=== PATIENT | male | born 1945 | race Caucasian/White ===

== ENCOUNTER → 2018-03-24 08:33 | Outpatient (CLI) | payer MEDICARE, SELFPAY ==
[2018-03-24 09:24] LABS: Add Manual Diff / Slide Review NO; Eosinophils Percent Auto 5.8 % (2-4); Hematocrit 38.4 % (41-53); Hemoglobin 13.4 g/dL (13.5-17.5); Lymphocytes Percent Auto 19.6 % (25-40); Mean Corpuscular HGB Conc 34.9 % (30-36); Mean Corpuscular Hemoglobin 30.1 PG (26-34); Mean Corpuscular Volume 86.4 fL (80-100); Monocytes Percent Auto 8.5 % (3-14); Neutrophils Absolute Auto 3200 /uL (3000-5900); Neutrophils Percent Auto 65.1 % (50-75); Platelet Count 200 X10^3/uL (150-400); Red Blood Cell Count 4.45 X10^6/uL (4.5-5.9); Red Cell Distribution Width 13.5 % (11.6-14.8); White Blood Cell Count 4.9 X10^3/uL (4.5-11.0)
[2018-03-24 10:26] LABS: Alanine Aminotransferase 28 IU/L (21-72); Albumin 4.6 g/dL (3.5-5.0); Albumin Globulin Ratio 1.8 (1.0-2.8); Alkaline Phosphatase 53 U/L (38-126); Aspartate Aminotransferase 21 IU/L (17-59); Bilirubin Total 1.4 mg/dL (0.2-1.3); Blood Urea Nitrogen 18 mg/dL (9-20); Calcium 9.8 mg/dL (8.4-10.2); Carbon Dioxide 27 mmol/L (22-32); Chloride 106 mmol/L (98-107); Cholesterol 188 mg/dL (140-199); Estimated Glomerular Filt Rate > 60.0 mL/min (>60); Globulin 2.6 g/dL (1.7-4.1); Glucose 98 mg/dL (80-110); HDL Cholesterol 54 mg/dL (40-60); HEMOLYSIS < 15 (0-50); LDL Cholesterol Calculated 96 mg/dL (<100); Sodium 146 mmol/L (137-145); Total Protein 7.2 g/dL (6.3-8.2); Triglycerides 190 mg/dL (35-150)
[2018-03-24 10:59] LABS: Prostate Specific Antigen Scrn < 0.064 ng/mL (0.1-4.0)
[2018-03-24 11:00] LABS: TSH w/ Reflex to FT4 1.75 uIU/mL (0.47-4.68)
== END ==
PROVIDERS: PCP Family Medicine; Visit Provider Family Medicine
DX: E78.5 Hyperlipidemia, unspecified (principal); I10 Essential (primary) hypertension; R73.03 Prediabetes; Z85.46 Personal history of malignant neoplasm of prostate
CPT/HCPCS: 36415; 80053; 80061; 84443; 85025; G0103

== ENCOUNTER → 2018-04-24 09:12 | Outpatient (CLI) | payer MEDICARE, SELFPAY ==
--- NOTE | 2018-04-24 09:14 | DI.MRI.S_ITS ---
PROCEDURE: MR LUMBAR SPINE WO CON INDICATIONS: SCIATICA TECHNIQUE: Noncontrast sagittal T1 spin echo and T2 fast echo, sagittal STIR, axial T1 and T2 fast spin echo through the lumbar spine. In cases with scoliosis, additional coronal T2 fast spin echo may be performed. COMPARISON: None. FINDINGS: Image quality: Excellent. Alignment and Curvature: There is normal bony alignment. Bone Marrow: Marrow is of normal overall signal. No acute vertebral body compression fractures. Spinal Cord: Conus medullaris terminates at the L1 level. Visualized cord demonstrates normal signal and size. Paraspinous Soft Tissues: No paravertebral masses. There is partial visualization of the abdominal aortic aneurysm that measures up to 4.7 cm. T12-L1: The disc height and disc signal are relatively well-preserved. Mild generalized disc bulge is seen. No significant neural foraminal or central canal narrowing are seen. L1-L2: The disc height and disk signal are well-preserved. Mild generalized disc bulge is seen. There is moderate left-sided and no significant right-sided neural foraminal narrowing seen. Mild central canal narrowing is seen. L2-L3: No significant abnormality is seen. L3-L4: The disc height is well preserved. Mild loss of disc signal is seen. Mild to moderate disc bulge is seen, which is eccentric to the right. Moderate facet joint hypertrophy is seen. Moderate bilateral neural foraminal narrowing is seen. Moderate central canal narrowing is seen. L4-L5: The disc height is well-preserved. Loss of disc signal is seen at this level. Along the posterior aspect of the annulus fibrosis, there is an annular fissure seen, as on series 2 image 9. Moderate generalized disc bulge is seen. Mild facet joint hypertrophy is seen. [id number] bilateral neural foraminal narrowing is seen, left greater than right. Mild central canal narrowing is seen. L5-S1: No significant disc pathology is seen. Relatively prominent epidural fat can be seen at this level, which leads to at least moderate central canal narrowing. IMPRESSION: Multiple levels of lumbar spine degenerative change are seen, including moderate bilateral neural foraminal narrowing and moderate central canal narrowing at L3-L4. At L4-L5, there is an annular fissure seen posteriorly. An abdominal aortic aneurysm is partially seen, which measures at least 4.7 cm. Further dedicated evaluation is recommended, either with ultrasound or dedicated CT angiogram. Dictated by: Iraj Cheek M.D. on 04/24/2018 at 10:44 Approved by: Iraj Cheek M.D. on 04/24/2018 at 10:50
== END ==
PROVIDERS: PCP Family Medicine; Visit Provider Family Medicine
DX: M51.16 Intervertebral disc disorders with radiculopathy, lumbar region (principal); M48.061 Spinal stenosis, lumbar region without neurogenic claudication; I71.4 Abdominal aortic aneurysm, without rupture
CPT/HCPCS: 72148

== ENCOUNTER → 2018-05-15 08:46 | Outpatient (CLI) | payer MEDICARE, SELFPAY ==
--- NOTE | 2018-05-15 08:49 | DI.US.S_ITS ---
PROCEDURE: US ABD AORTA ANEURYSM SCREEN INDICATIONS: Abdominal aortic aneurysm size TECHNIQUE: Real time scanning was performed of the aorta and iliac arteries, with image documentation. COMPARISON: None. FINDINGS: Aorta: Proximal aortic diameter measures 1.8 cm. Mid-aorta measures 1.4 cm. Distal aortic diameter is 3.9 cm. Iliac arteries: Right common iliac artery measures 1.4 cm. Left common iliac artery measures 1.1 cm. IMPRESSION: 3.9 cm distal abdominal aortic aneurysm. Recommend 3 year followup ultrasound. Dictated by: Bhavin Carnes [facility] Interpreted: Jasmeet Evans MD on 05/15/2018 at 9:22 Approved by: Jasmeet Evans M.D. on 05/15/2018 at 9:30
== END ==
PROVIDERS: PCP Family Medicine; Visit Provider Family Medicine
DX: I71.4 Abdominal aortic aneurysm, without rupture (principal)
CPT/HCPCS: 76706

== ENCOUNTER → 2019-01-04 08:44 | Outpatient (CLI) | payer MEDICARE, SELFPAY ==
--- NOTE | 2019-01-04 09:10 | DI.CT.S_ITS ---
PROCEDURE: CT ABDOMEN PELVIS W CON INDICATIONS: left lower quad abdominal pain TECHNIQUE: After the administration of oral and intravenous contrast, 5 mm thick sections acquired from the diaphragms to the symphysis. 5 mm thick coronal and sagittal reformats were performed. For radiation dose reduction, the following was used: automated exposure control, adjustment of mA and/or kV according to patient size. COMPARISON: [facility], US, US ABD AORTA ANEURYSM SCREEN, 05/15/2018, 9:04. [facility], MR, MR LUMBAR SPINE WO CON, 04/24/2018, 9:30. FINDINGS: Image quality: Excellent. ABDOMEN: Lung bases: Lung bases are clear. Heart size is normal. A small hiatal hernia is incidentally noted. Solid organs: Liver is normal in size and enhancement. Gallbladder wall is not thickened. Biliary system is non-dilated. Pancreas enhances normally. Dense calcifications can be seen within the pancreas, particularly the pancreatic head Spleen is normal in size and enhancement. Incidental note is made of an accessory spleen along the hilum of the primary spleen. No adrenal nodules. Kidneys are normal in size and enhancement, without hydronephrosis. Peritoneum and bowel: Moderate wall thickening can be seen involving the sigmoid colon, where there are numerous diverticula seen. Surrounding fat stranding can be seen. No free air is seen to suggest perforation. No focal abscess collection can be seen. No dilated loops of small bowel are seen. No additional colonic abnormality is seen. Nodes and vessels: No retroperitoneal or mesenteric adenopathy. A saccular aneurysm of the distal aorta is seen on the left, which measures 4 cm transversely by 4.5 cm AP, with a craniocaudal extent of 4.9 cm. The IVC demonstrates normal caliber. Miscellaneous: No ventral hernias. PELVIS: Genitourinary: Bladder wall thickness is normal. Prostatectomy changes are seen. Miscellaneous: No inguinal hernias or adenopathy. Bones: No suspicious bony lesions. No vertebral body compression fractures. Age-appropriate bony degenerative changes are seen. IMPRESSION: Moderate sigmoid diverticulitis, without taylor findings of perforation or abscess. When clinically appropriate (following adequate treatment of the patient's current clinical episode) a colonoscopy is recommended for further evaluation for a potential underlying mass (if not already recently done). Distal abnormal aortic saccular aneurysm seen. A vascular surgery consultation is recommended. Dense pancreatic calcifications are seen, which are attributed to chronic pancreatitis. Incidental note is made of: Small hiatal hernia Prostatectomy Dictated by: Iraj Cheek M.D. on 01/04/2019 at 9:40 Approved by: Iraj Cheek M.D. on 01/04/2019 at 9:45
[2019-01-04 09:37] LABS: Add Manual Diff / Slide Review NO; Basophils Absolute Auto 0 /uL (0-100); Basophils Percent Auto 0.3 % (0-2); Eosinophils Absolute Auto 200 /uL (0-450); Eosinophils Percent Auto 1.7 % (2-4); Hematocrit 37.8 % (41-53); Hemoglobin 12.8 g/dL (13.5-17.5); Lymphocytes Absolute Auto 1000 /uL (1100-4500); Lymphocytes Percent Auto 9.1 % (25-40); Mean Corpuscular Hemoglobin 29.3 PG (26-34); Mean Corpuscular Volume 86.2 fL (80-100); Monocytes Absolute Auto 1200 /uL (0-900); Monocytes Percent Auto 10.5 % (3-14); Neutrophils Absolute Auto 8900 /uL (1500-7000); Neutrophils Percent Auto 78.4 % (50-75); Platelet Count 234 X10^3/uL (150-400); Red Blood Cell Count 4.38 X10^6/uL (4.5-5.9); Red Cell Distribution Width 13.6 % (11.6-14.8); White Blood Cell Count 11.4 X10^3/uL (4.5-11.0)
[2019-01-04 09:54] LABS: Alanine Aminotransferase 28 IU/L (21-72); Albumin 4.4 g/dL (3.5-5.0); Albumin Globulin Ratio 1.5 (1.0-2.8); Alkaline Phosphatase 65 U/L (38-126); Aspartate Aminotransferase 24 IU/L (17-59); BUN Creatinine Ratio 16.7 (6-22); Bilirubin Total 1.5 mg/dL (0.2-1.3); Blood Urea Nitrogen 15 mg/dL (9-20); Calcium 9.5 mg/dL (8.4-10.2); Carbon Dioxide 30 mmol/L (22-32); Chloride 105 mmol/L (98-107); Estimated Glomerular Filt Rate > 60.0 mL/min (>60); Globulin 2.9 g/dL (1.7-4.1); Glucose 111 mg/dL (80-110); HEMOLYSIS < 15 (0-50); Lipase 81 U/L (23-300); Potassium 3.9 mmol/L (3.4-5.1); Sodium 142 mmol/L (137-145); Total Protein 7.3 g/dL (6.3-8.2)
== END ==
PROVIDERS: PCP Family Medicine; Visit Provider Physician Assistant
DX: R10.32 Left lower quadrant pain (principal)
CPT/HCPCS: 36415; 74177; 80053; 83690; 85025; Q9967

== ENCOUNTER → 2019-01-25 08:51 | Outpatient (CLI) | payer MEDICARE, SELFPAY ==
[2019-01-25 09:45] LABS: Alanine Aminotransferase 23 IU/L (21-72); Aspartate Aminotransferase 27 IU/L (17-59); BUN Creatinine Ratio 18.9 (6-22); Blood Urea Nitrogen 17 mg/dL (9-20); Calcium 9.7 mg/dL (8.4-10.2); Carbon Dioxide 29 mmol/L (22-32); Chloride 105 mmol/L (98-107); Cholesterol 174 mg/dL (140-199); Estimated Glomerular Filt Rate > 60.0 mL/min (>60); Glucose 102 mg/dL (80-110); HDL Cholesterol 43 mg/dL (40-60); HEMOLYSIS < 15 (0-50); LDL Cholesterol Calculated 84 mg/dL (<100); Potassium 4.8 mmol/L (3.4-5.1); Sodium 142 mmol/L (137-145); Triglycerides 235 mg/dL (35-150)
== END ==
PROVIDERS: PCP Family Medicine; Visit Provider Internal Medicine
DX: I10 Essential (primary) hypertension (principal); E78.1 Pure hyperglyceridemia
CPT/HCPCS: 36415; 80048; 80061; 84450; 84460

== ENCOUNTER → 2019-04-09 09:29 | Outpatient (CLI) | payer MEDICARE, SELFPAY | PROVIDERS: PCP Family Medicine; Visit Provider Physician Assistant | DX: L08.9 Local infection of the skin and subcutaneous tissue, unspecified (principal) | CPT/HCPCS: 87070; 87077; 87147; 87186; 87205 ==

== ENCOUNTER 2019-06-20 08:02 | Day surgery (SDC) | payer MEDICARE, SELFPAY ==
--- NOTE | 2019-06-20 | PATH_ITS ---
[facility] Accession Number: [id number] . 01 Material submitted: . PART A: colon - ASCENDING COLON POLYP PART B: sigmoid colon - SIGMOID POLYP . 02 Diagnosis: A. Ascending Colon, Polyp: Colonic mucosa with prominent benign lymphoid aggregate and focal mucosal hyperplasia. Negative for dysplasia or malignancy. . B. Sigmoid Colon, Polyp: Predominantly vegetable material. Single strip of superficial colonic mucosa with no diagnostic abnormality. No evidence of serrated lesion, dysplasia or malignancy. Additional step sections examined. V 06/22/2019 1309 Local . 02 Comment: Part A: Features diagnostic of a sessile serrated adenoma are not seen in this biopsy. . 02 Electronically signed: . Abdullahi Juares MD, PhD, Pathologist NPI- [id number] . 01 Gross description: . Part A: ASCENDING COLON POLYP: Received in formalin are 2 fragment(s) of durbin, soft tissue measuring 0.2 x 0.2 x 0.1 cm to 0.3 x 0.1 x 0.1 cm submitted entirely in 1 cassette(s) Part B: SIGMOID POLYP: Received in formalin are multiple fragment(s) of durbin, soft tissue measuring 0.1 x 0.1 x 0.1 cm to 0.2 x 0.2 x 0.2 cm submitted entirely in 1 cassette(s) /[facility] [place] 06/20/20192028 Local . 02 Pathologist provided ICD-10: K63.5 . 02 CPT . 860346, [id number] Performed at: 01 [facility] [address], [place], [place] [id number] MD Quinn Kwong MD Phone: [phone] Performed at: 02 [facility] [place] [address] [place] [id number] MD Altagracia King MD Phone: [phone]
--- NOTE | 2019-06-20 08:10 | PM.HP.1 ---
History of Present Illness History of Present Illness Date Patient Seen: 06/20/19 Chief complaint: [id number] Narrative: Patient presented for screening colonoscopy. Patient describes previous colonoscopy 10-15 years ago, states he did have polyps at that time. Unfortunately do have this report available for review. Denies diarrhea constipation. Patient History Medical History AAA (abdominal aortic aneurysm) without rupture (Chronic) Anxiety (Chronic) CAD (coronary artery disease) (Chronic 10/2013) Chicken pox (Resolved) Chronic headaches (Chronic) Cirrhosis (Chronic) Colon polyps (Chronic) CTS (carpal tunnel syndrome) (Chronic) CVA (cerebral vascular accident) (Resolved) Diverticular disease (Chronic) Elevated PSA (Resolved) Erectile dysfunction following radical prostatectomy (Chronic) Foot pain (Chronic) Fractures (Resolved) GERD (gastroesophageal reflux disease) (Chronic) Hayfever (Chronic) Hyperlipidemia (Chronic) Hypertension (Chronic) Insomnia (Chronic) Measles (Resolved) WI (myocardial infarction) (Resolved) Migraines (Chronic) Mumps (Resolved) Myalgia (Chronic) Osteopenia (Chronic) Palpitations (Chronic) Prostate cancer (Chronic) Psoriasis (Chronic) PTSD (post-traumatic stress disorder) (Chronic) Shoulder pain (Chronic) SOB (shortness of breath) (Chronic) Tinnitus (Chronic) Vertigo (Chronic) Surgical History Anesthesia (Resolved) History of angioplasty (Resolved 10/2013) Status post knee surgery (Resolved) Status post radical cystoprostatectomy (Resolved) Family & Social History Family History (Updated 03/21/18 @ 09:31 by Karon Dinh) Brother Age: 76 Heart disease Grandfather Colorectal cancer Grandmother Hypertension Cancer Mother Heart disease Hypertension Sister Age: 77 Breast cancer Father Alcohol abuse Grandmother No problems noted. Grandfather No problems noted. Tobacco & Substance use: Smoking Status Former smoker Meds Home Medications and Allergies Home Medications Medication Instructions Recorded Confirmed Type aspirin 81 mg PO QDAY #30 tab 02/27/16 06/20/19 History carvedilol 3.125 mg tablet 3.125 mg PO BID 07/26/18 06/20/19 History clopidogrel 75 mg tablet 75 mg PO DAILY 07/26/18 06/20/19 History losartan 25 mg tablet See Rx Instructions PO BID tab 07/26/18 06/20/19 History rosuvastatin 20 mg tablet 20 mg PO DAILY 07/26/18 06/20/19 History escitalopram oxalate [Lexapro] 10 mg PO QDAY #90 tab 08/25/18 06/20/19 Rx Allergies Allergy/AdvReac Type Severity Reaction Status Date / Time isosorbide [ISOSORBIDE] Allergy Severe HEADACHE/NA Verified 06/20/19 08:29 USEA Review of Systems Review of Systems ROS Unobtainable: All systems reviewed & are unremarkable except as noted in HPI and below Exam Const General: cooperative, healthy appearing, comfortable, well developed, well groomed and No acute distress Nutritional Appearance: average body habitus Orientation: alert, awake and oriented x3 Resp Effort & Inspection: normal respiratory effort, able to speak in complete sentences and no respiratory distress Auscultation: clear to auscultation bilaterally Cardio Rate: regular rate Rhythm: regular rhythm Heart Sounds: S1 normal and S2 normal GI Palpation: soft and No tender Auscultation: normal bowel sounds Extrem Right lower extremity: no edema Left lower extremity: no edema Assessment & Plan Assessment & Plan narrative: 1. Screening colonoscopy, increased risk -personal history of colon polyps - Colonoscopy today, further recommendations to follow
[2019-06-20 08:35] VITALS: BP 149/79; PULSE 70; RESP 15; TEMP 36.3; O2SAT 99; BMI 26.4
[2019-06-20] MEDS: SODIUM CHLORIDE 0.9% 1,000 ML 70 ML IV (08:44)
--- NOTE | 2019-06-20 10:04 | PM.OP.ENDO ---
Operative Date/Time/Diagnoses Date of procedure: 06/20/19 Time of procedure: 09:41 Procedure Notes Procedure in detail: Surgeon: Lizette Butler DO Procedure: Colonoscopy with polypectomy Preoperative diagnosis: 1. Personal history colon polyps 2. History of diverticulitis Postoperative diagnosis: 1. Five mm ascending colon polyp 2. Four mm sigmoid colon polyp 3. Diverticulosis in the sigmoid and descending 4. Internal and external hemorrhoids Medications: Conscious sedation using 5 mg IV of Midazolam and 100 mcg IV of Fentanyl Preanesthesia Assessment An H and P was performed/updated and the Px?s ASA class is 2. The procedure was discussed in detail with the patient. The potential risks and complications including infection, bleeding, missed lesions, perforation, need for surgery in case of perforation, prolonged hospital stay, and were explained. A brief question and answer period was allotted and once all questions were answered, informed consent was obtained. The patient was brought back to the procedure room and placed on standard monitoring. The patient?s vital signs were monitored continuously throughout the entire procedure. Prior to starting, a timeout was performed to confirm the patient?s identity, allergies, medications, and procedure. Procedure in detail The patient was placed in left lateral decubitus position and once adequate sedation was obtained a BLUE was performed. The digital rectal examination did not reveal any palpable lesions. The tip of the colonoscope was placed in the anal canal and advanced without difficulty all the way to the cecum which was identified by the appendiceal orifice and the ileocecal valve. Careful examination of all orozco of the colon was performed with irrigation of any residual stool. A flat polyp was noted in the ascending colon 5 mm in size removed with cold snare. Sigmoid polyp 4 mm removed with cold snare. Scattered diverticula noted in the sigmoid and descending colon. Internal and external hemorrhoids noted on perianal exam and on retroflexion, grade 1, mild The patient tolerated the procedure well and will be brought back to the recovery area to be discharged once criteria are met. The prep was judged to be good/excellent and adequate to identify polyps less than 5 mm. The withdrawal time was 9min. The total physician intraservice time was 22min. Complications There were no complications and estimated blood loss was minimal. Recommendations: Resume previous diet Continue outPx medications Follow up pathology results Repeat colonoscopy in 5 years. An emergency contact number was given to the patient for any complications related to the procedure
[2019-06-20 10:10] VITALS: BP 108/62; PULSE 60; RESP 14; TEMP 36.4; O2SAT 94
[2019-06-20] MEDS: MIDAZOLAM 5 MG/5 ML VIAL IV (10:13)
[2019-06-20] MEDS: fentaNYL 250 MCG/5 ML INJ IV (10:14)
[2019-06-20 10:15] VITALS: BP 114/66; PULSE 60; RESP 15; O2SAT 94
[2019-06-20 10:20] VITALS: BP 116/66; PULSE 65; RESP 13; O2SAT 64
[2019-06-20 10:30] VITALS: BP 138/62; PULSE 70; RESP 16; TEMP 36.8; O2SAT 96
[2019-06-20 10:35] VITALS: BP 139/82; PULSE 64; RESP 15; TEMP 36.9; O2SAT 97
== END 2019-06-20 11:02 | disposition home or self-care (01) ==
PROVIDERS: PCP Internal Medicine; Visit Provider Student in an Organized Health Care Education/Training Program
PROC: 0DJD8ZZ Inspection of Lower Intestinal Tract, Via Natural or Artificial Opening Endoscopic (ICD-10-PCS; CPT 45378; principal; 2019-06-20 09:00)
DX: Z12.11 Encounter for screening for malignant neoplasm of colon (principal); Z86.010 Personal history of colon polyps; K57.30 Diverticulosis of large intestine without perforation or abscess without bleeding; K64.0 First degree hemorrhoids; K64.4 Residual hemorrhoidal skin tags; K63.5 Polyp of colon
CPT/HCPCS: 45385; J2250; J3010

== ENCOUNTER → 2019-06-25 12:14 | Outpatient (CLI) | payer MEDICARE, SELFPAY ==
--- NOTE | 2019-06-25 | DI.RAD.S_ITS ---
PROCEDURE: XR LUMBAR SPINE 2-3V INDICATIONS: low back and left leg pain TECHNIQUE: 3 views of the lumbar spine were acquired. COMPARISON: None. FINDINGS: Bones: No fracture or focal osseous destruction. Straightening of the normal lordotic curvature. Mild dextrocurvature. Multilevel degenerative endplate sclerosis and spurring. Diffuse facet arthropathy. Diffuse mild narrowing of the lumbar disc spaces. Mild bilateral hip joint degeneration. Soft tissues: Overlying bowel gas pattern is normal. No suspicious soft tissue calcifications. IMPRESSION: Mild dextroscoliosis and diffuse mild lumbar spondylosis. Multilevel facet arthropathy Mild bilateral hip degeneration Straightening of the normal lordotic curvature. Dictated by: Noel Aguila M.D. on 06/25/2019 at 15:00 Approved by: Noel Aguila M.D. on 06/25/2019 at 15:03
== END ==
PROVIDERS: PCP Internal Medicine; Visit Provider Chiropractor
DX: M54.5 Low back pain (principal); M79.605 Pain in left leg; M47.816 Spondylosis without myelopathy or radiculopathy, lumbar region; M16.0 Bilateral primary osteoarthritis of hip; M41.86 Other forms of scoliosis, lumbar region
CPT/HCPCS: 72100

== ENCOUNTER → 2019-07-04 06:31 | Outpatient (CLI) | payer MEDICARE, SELFPAY ==
--- NOTE | 2019-07-04 | DI.MRI.S_ITS ---
PROCEDURE: MR LUMBAR SPINE WO CON INDICATIONS: Lumbago with sciatica, left side TECHNIQUE: Noncontrast sagittal T1 spin echo and T2 fast echo, sagittal STIR, axial T1 and T2 fast spin echo through the lumbar spine. In cases with scoliosis, additional coronal T2 fast spin echo may be performed. COMPARISON: [facility], CT, CT ABDOMEN PELVIS W CON, 01/04/2019, 10:15. [facility], MR, MR LUMBAR SPINE WO CON, 04/24/2018, 9:30. FINDINGS: Image quality: Excellent. Alignment and Curvature: There is normal bony alignment. Bone Marrow: No fracture. Multilevel degenerative endplate sclerosis and spurring. Diffuse facet arthropathy. Spinal Cord: Conus medullaris terminates at the L1 level. Visualized cord demonstrates normal signal and size. Paraspinous Soft Tissues: Large saccular aortic aneurysm is again partially visualized, better seen on comparison CT dated 01/04/19 L1-L2: Normal appearance. L2-L3: Normal appearance. L3-L4: Moderate central canal narrowing. Partial effacement of both lateral recesses with bilaterally symmetric appearance. Mild left foraminal stenosis with slight nerve root compression. Moderate right foraminal stenosis with associated nerve root compression. Overall, no interval change since 04/24/18 L4-L5: Posterior annular fissure and mild central canal narrowing. Partial effacement of both lateral recesses with bilaterally symmetric appearance. Mild bilateral foraminal narrowing with slight nerve root compression. No interval change L5-S1: Prominent epidural lipomatosis as before with associated severe canal narrowing. Lateral recesses appear patent. Mild bilateral foraminal narrowing IMPRESSION: Multilevel lumbar spondylosis as detailed above, with prominent epidural lipomatosis causing severe canal narrowing at L5-S1. This is unchanged No interval change in multilevel, bilateral foraminal stenoses as detailed above Large partially visualized saccular aortic aneurysm, better seen on comparison CT dated 01/04/19. Dictated by: Noel Aguila M.D. on 07/04/2019 at 8:45 Approved by: Noel Aguila M.D. on 07/04/2019 at 8:53
== END ==
PROVIDERS: PCP Internal Medicine; Visit Provider Internal Medicine
DX: M54.42 Lumbago with sciatica, left side (principal); M47.816 Spondylosis without myelopathy or radiculopathy, lumbar region; M48.061 Spinal stenosis, lumbar region without neurogenic claudication; M48.07 Spinal stenosis, lumbosacral region; I71.9 Aortic aneurysm of unspecified site, without rupture; E88.2 Lipomatosis, not elsewhere classified
CPT/HCPCS: 72148

== ENCOUNTER 2019-07-09 08:44 | Emergency (ER) | payer MEDICARE, SELFPAY ==
[2019-07-09 08:51] VITALS: BP 195/106; PULSE 98; RESP 16; TEMP 36.4; O2SAT 99; BMI 29.0
--- NOTE | 2019-07-09 08:52 | ED_ITS ---
HPI - Back Pain/Injury General Chief Complaint: Back Pain/Injury Stated Complaint: sciatic pain Time Seen by Provider: 07/09/19 08:48 Source: patient Mode of arrival: Ambulatory Limitations: no limitations History of Present Illness HPI Narrative: Patient is a 73-year-old male who presents with left-sided sciatic pain and back pain ongoing for the last 6 weeks. He actually had an MRI 07/04/2019 revealed multilevel lumbar spondylosis with epidural lipomatosis and severe canal narrowing at L5-S1 which is unchanged. Patient states that he has hydrocodone an anti-inflammatory and a muscle relaxer at home. He has been referred to neuro surgery and telling him and physical therapy which is to start July 19. He is frustrated that it is taking so long he has not yet taken anything for pain today and says his pain is worse. He denies any changes in bowel or bladder habits. He continues to have some numbness tingling in his left leg but not any worse than what it has been. He said last night he was un able to sleep due to the pain and he took hydrocodone and a muscle relaxer. He can't remember all the names of his medications but he says that he was recently put on a steroid which she finished is says it didn't help. He has been followed by his PCP for this problem for a number of weeks. Complaint: back pain Onset (ago): week(s) (6) Duration: constant Location: lumbar spine Severity: moderate Quality: burning and sharp Radiation: none Related Data Home Medications Medication Instructions Recorded Confirmed aspirin 81 mg PO QDAY #30 tab 02/27/16 06/20/19 carvedilol 3.125 mg tablet 3.125 mg PO BID 07/26/18 06/20/19 clopidogrel 75 mg tablet 75 mg PO DAILY 07/26/18 06/20/19 losartan 25 mg tablet See Rx Instructions PO BID tab 07/26/18 06/20/19 rosuvastatin 20 mg tablet 20 mg PO DAILY 07/26/18 06/20/19 Previous Rx's Medication Instructions Recorded escitalopram oxalate [Lexapro] 10 mg PO QDAY #90 tab 08/25/18 lidocaine 1 patch TOP DAILY PRN #15 each 07/09/19 Allergies Allergy/AdvReac Type Severity Reaction Status Date / Time isosorbide [ISOSORBIDE] Allergy Severe HEADACHE/NA Verified 07/09/19 08:51 USEA Review of Systems Review of Systems Narrative: GENERAL: Denies chills, fatigue, malaise, fever, sweats, travel HEENT: Denies sinus pain, ear pain, sore throat, difficulty swallowing, neck pain RESPIRATORY: Denies dyspnea, cough, wheezing, hemoptysis, sputum. CARDIOVASCULAR: Denies chest pain, palpitations, orthopnea, edema GASTROINTESTINAL: Denies nausea, vomiting, abdominal pain, diarrhea, constipation, melena. : Denies dysuria, frequency, incontinence, hematuria, urinary retention, flank pain. MUSCULOSKELETAL: See HPI SKIN: No rash, no erythema, no pruritus NEUROLOGIC: Denies weakness, dizziness, headache, numbness, change in speech, confusion PSYCHIATRIC: No concerning psychosocial issues. 12 point review of systems is negative except for those stated above and HPI Patient History Medical History AAA (abdominal aortic aneurysm) without rupture (Chronic) Anxiety (Chronic) CAD (coronary artery disease) (Chronic 10/2013) Chicken pox (Resolved) Chronic headaches (Chronic) Cirrhosis (Chronic) Colon polyps (Chronic) CTS (carpal tunnel syndrome) (Chronic) CVA (cerebral vascular accident) (Resolved) Diverticular disease (Chronic) Elevated PSA (Resolved) Erectile dysfunction following radical prostatectomy (Chronic) Foot pain (Chronic) Fractures (Resolved) GERD (gastroesophageal reflux disease) (Chronic) Hayfever (Chronic) Hyperlipidemia (Chronic) Hypertension (Chronic) Insomnia (Chronic) Measles (Resolved) PA (myocardial infarction) (Resolved) Migraines (Chronic) Mumps (Resolved) Myalgia (Chronic) Osteopenia (Chronic) Palpitations (Chronic) Prostate cancer (Chronic) Psoriasis (Chronic) PTSD (post-traumatic stress disorder) (Chronic) Shoulder pain (Chronic) SOB (shortness of breath) (Chronic) Tinnitus (Chronic) Vertigo (Chronic) Surgical History Anesthesia (Resolved) History of angioplasty (Resolved 10/2013) Status post knee surgery (Resolved) Status post radical cystoprostatectomy (Resolved) Family History Brother Age: 76 Heart disease Grandfather Colorectal cancer Grandmother Hypertension Cancer Mother Heart disease Hypertension Sister Age: 77 Breast cancer Father Alcohol abuse Grandmother No problems noted. Grandfather No problems noted. Social History household members: spouse Smoking Status: Former smoker Smoking Status: Former smoker Exam Initial Vital Signs Initial Vital Signs: Vital Signs Temperature 97.5 F L 07/09/19 08:51 Pulse Rate 98 H 07/09/19 08:51 Respiratory Rate 16 07/09/19 08:51 Blood Pressure 195/106 H 07/09/19 08:51 Pulse Oximetry 99 07/09/19 08:51 GENERAL: Alert older male sitting on edge of bed no acute distress HEENT: Head atraumatic,EOMI, pupils reactive CARDIOVASCULAR: Regular rate and rhythm without murmurs, rubs or gallops. RESPIRATORY: Breath sounds equal bilaterally, no wheezes rales or rhonchi. ABDOMEN: Soft, nontender. Normoactive bowel sounds all 4 quadrants. No guarding or rebound. BACK: The tender left lower lumbar area and gluteal region no vertebral tenderness no step-off EXTREMITIES: Normal range of motion, no clubbing or edema. Neurovascularly intact NEUROLOGICAL: Alert and oriented x4.Normal gait and speech. Sensation in lower extremities intact and equal bilaterally. Able to stand upright and walk he states only for short time and then he needs his walking stick because his back starts she SKIN: Warm, dry, no laceration, no petechiae, no rashes or lesions. Course Orders Ordered: Discontinued Medications Diazepam (Valium) 5 mg PO NOW ONE Stop: 07/09/19 09:06 Last Admin: 07/09/19 09:17 Dose: 5 mg Documented by: DARRIN Ketorolac Tromethamine (Toradol) 30 mg IM NOW ONE Stop: 07/09/19 09:06 Last Admin: 07/09/19 09:17 Dose: 30 mg Documented by: DARRIN Vital Signs Vital signs: Vital Signs - 8 hr 07/09/19 08:51 07/09/19 09:35 Temperature 97.5 F L Pulse Rate 98 H 78 Respiratory Rate 16 18 Blood Pressure 195/106 H Blood Pressure [Right Arm] 160/96 H Pulse Oximetry 99 99 MDM - Back Pain/Injury Imaging Data MRI-lumbar 07/04/19: Radiologist's Impression: PROCEDURE: MR LUMBAR SPINE WO CON INDICATIONS: Lumbago with sciatica, left side TECHNIQUE: Noncontrast sagittal T1 spin echo and T2 fast echo, sagittal STIR, axial T1 and T2 fast spin echo through the lumbar spine. In cases with scoliosis, additional coronal T2 fast spin echo may be performed. COMPARISON: [facility], CT, CT ABDOMEN PELVIS W CON, 01/04/2019, 10:15. [facility], MR, MR LUMBAR SPINE WO CON, 04/24/2018, 9:30. FINDINGS: Image quality: Excellent. Alignment and Curvature: There is normal bony alignment. Bone Marrow: No fracture. Multilevel degenerative endplate sclerosis and spurring. Diffuse facet arthropathy. Spinal Cord: Conus medullaris terminates at the L1 level. Visualized cord demonstrates normal signal and size. Paraspinous Soft Tissues: Large saccular aortic aneurysm is again partially visualized, better seen on comparison CT dated 01/04/19 L1-L2: Normal appearance. L2-L3: Normal appearance. L3-L4: Moderate central canal narrowing. Partial effacement of both lateral recesses with bilaterally symmetric appearance. Mild left foraminal stenosis with slight nerve root compression. Moderate right foraminal stenosis with associated nerve root compression. Overall, no interval change since 04/24/18 L4-L5: Posterior annular fissure and mild central canal narrowing. Partial effacement of both lateral recesses with bilaterally symmetric appearance. Mild bilateral foraminal narrowing with slight nerve root compression. No interval change L5-S1: Prominent epidural lipomatosis as before with associated severe canal narrowing. Lateral recesses appear patent. Mild bilateral foraminal narrowing IMPRESSION: Multilevel lumbar spondylosis as detailed above, with prominent epidural lipomatosis causing severe canal narrowing at L5-S1. This is unchanged No interval change in multilevel, bilateral foraminal stenoses as detailed above Large partially visualized saccular aortic aneurysm, better seen on comparison CT dated 01/04/19. Dictated by: Noel Aguila M.D. on 07/04/2019 at 8:45 MDM Narrative Medical decision making narrative: Patient states that he is not taking his medication throughout the day he is only taking at nighttime to see says the brain fog. Then takes 3 hydrocodone and a muscle relaxer and still can't get to sleep. I discussed with him correct taking a medication in courage to take it through out today to stay ahead of the pain possibly trying 1 hydrocodone every 6 hours not combining with a muscle relaxer. I will also give him a lidocaine patches. At this time there is very little for me to add to this patient's care plan. Discharge Plan Departure Patient Disposition: Home Clinical Impression: Back pain Qualifiers: Back pain location: low back pain Chronicity: chronic Back pain laterality: left Sciatica presence: with sciatica Sciatica laterality: sciatica of left side Qualified Code(s): M54.42 - Lumbago with sciatica, left side Discharge Date/Time: 07/09/19 09:41 Instructions: DI for Back Pain With Sciatica Activity Restrictions/Additional Instructions: *You have been diagnosed with chronic back pain with left sciatic *What to do: Continue with all previous medications. Wait for referral to spine surgeon along with physical therapy. Continue light stretching and some light movements. *Continue to take medications as directed Lidocaine patch cut to appropriate size and placed directly over pain. Leave in place for 12 hours and then remove--> SENT TO [facility] *Follow up with your primary care provider in 2-3 days *Return to ER if you should have loss of urine or stool leg weakness inability to walk or any new, worsening or concerning symptoms Prescriptions: New lidocaine 5 % adhesive patch,medicated 1 patch TOP DAILY PRN (Reason: pain (scale score 4-6)) Qty: 15 RF: 0 No Action aspirin 81 MG tablet,delayed release (DR/EC) 81 mg PO QDAY Qty: 30 RF: 0 carvedilol 3.125 mg tablet 3.125 mg PO BID RF: 0 losartan 25 mg tablet See Rx Instructions PO BID RF: 0 clopidogrel 75 mg tablet 75 mg PO DAILY RF: 0 rosuvastatin 20 mg tablet 20 mg PO DAILY RF: 0 escitalopram oxalate [Lexapro] 10 mg tablet 10 mg PO QDAY Qty: 90 RF: 3 Referrals: Selam Maldonado MD [Primary Care Provider] -
[2019-07-09] MEDS: diazePAM 5 MG TABLET PO (09:17)
[2019-07-09] MEDS: KETOROLAC 60 MG/2 ML VIAL 30 MG IM (09:17)
[2019-07-09 09:35] VITALS: BP 160/96; PULSE 78; RESP 18; O2SAT 99
== END 2019-07-09 09:41 | disposition home or self-care (01) ==
PROVIDERS: Emergency Provider Emergency Medicine; PCP Internal Medicine
DX: M54.42 Lumbago with sciatica, left side (principal)
CPT/HCPCS: 96372; 99281; 99283; J1885

== ENCOUNTER 2019-12-17 15:36 | Emergency (ER) | payer MEDICARE, SELFPAY ==
[2019-12-17 15:41] VITALS: BP 157/74; PULSE 61; RESP 18; O2SAT 99; BMI 29.0
--- NOTE | 2019-12-17 15:45 | DI.RAD.S_ITS ---
PROCEDURE: XR FINGER LT MIN 2V INDICATIONS: power tool, distal finger deformity TECHNIQUE: AP hand, 2 views of the left 2nd finger(s) acquired. COMPARISON: None. FINDINGS: Bones: There is a mildly displaced comminuted fracture of the distal phalanx of the 2nd digit. Soft tissues: No suspicious soft tissue calcifications. Soft tissue laceration involves the distal aspect of the 2nd digit. IMPRESSION: 2nd digit fracture. Dictated by: Dann Hyman M.D. on 12/17/2019 at 16:09 Approved by: Dann Hyman M.D. on 12/17/2019 at 16:11
--- NOTE | 2019-12-17 15:46 | ED.WOUNDLAC ---
HPI - Wound/Laceration General Chief Complaint: Wound/Laceration Stated Complaint: LEFT INDEX FINGER LACERATION Time Seen by Provider: 12/17/19 15:37 Source: patient Mode of arrival: Ambulatory Limitations: no limitations History of Present Illness HPI narrative: 74M former smoker with history of AAA, HTN, GERD presents with his and chief complaint of a complex laceration suffered to the tip of his left index finger. He was using a pluck trimmer when his finger got caught up in the blades. He has full range of motion but complains of some numbness distal to the laceration and noted active bleeding. His tetanus was updated about a year ago. He is otherwise well and free of complaint Related Data Home Medications Medication Instructions Recorded Confirmed aspirin 81 mg PO QDAY #30 tab 02/27/16 06/20/19 carvedilol 3.125 mg tablet 3.125 mg PO BID 07/26/18 06/20/19 clopidogrel 75 mg tablet 75 mg PO DAILY 07/26/18 06/20/19 losartan 25 mg tablet See Rx Instructions PO BID tab 07/26/18 06/20/19 rosuvastatin 20 mg tablet 20 mg PO DAILY 07/26/18 06/20/19 Previous Rx's Medication Instructions Recorded escitalopram oxalate [Lexapro] 10 mg PO QDAY #90 tab 08/25/18 lidocaine 1 patch TOP DAILY PRN #15 each 07/09/19 cephalexin [Keflex] 500 mg PO QID 7 Days #28 cap 12/17/19 Allergies Allergy/AdvReac Type Severity Reaction Status Date / Time isosorbide [ISOSORBIDE] Allergy Severe HEADACHE/NA Verified 07/09/19 08:51 USEA Review of Systems Constitutional Constitutional: Denies chills, Denies fatigue, Denies fever(s), Denies frequent falls, Denies lethargy and Denies weakness Eyes Eyes: Denies change in vision, Denies eye discharge, Denies irritation and Denies loss of vision ENT Ears, Nose, Mouth, and Throat: Denies change in voice, Denies dizziness, Denies neck pain, Denies sore throat and Denies throat swelling Cardiovascular Cardiovascular: Denies chest pain, Denies irregular heart rhythm, Denies lightheadedness, Denies palpitations, Denies dyspnea, Denies dyspnea on exertion and Denies orthopnea Respiratory Respiratory: Denies cough, Denies dyspnea, Denies dyspnea on exertion and Denies wheezing Gastrointestinal Gastrointestinal: Denies abdominal pain, Denies change in bowel habits, Denies diarrhea, Denies nausea and Denies vomiting Genitourinary Genitourinary: Denies hematuria, Denies flank pain, Denies urinary incontinence and Denies urinary urgency Musculoskeletal Musculoskeletal: Denies back pain, Denies muscle weakness, Denies neck pain, Denies numbness and Denies tingling Integumentary/Breasts Skin/Breast: Denies pruritus, Denies erythema, Denies rash and Reports wounds Neurologic Neurologic: Denies behavioral changes, Denies confusion, Denies dizziness, Denies frequent falls, Denies loss of vision, Denies numbness, Denies tingling and Denies weakness Psychiatric Psychiatric: Denies anxiety, Denies behavioral changes, Denies confusion, Denies depression, Denies homicidal ideation and Denies suicidal ideation Endocrine Endocrine: Denies fatigue, Denies flushing and Denies palpitations Hematologic/Lymphatic Hematologic/Lymphatic: Denies easy bruising Allergic/Immunologic Allergic/Immunologic: Denies urticaria, Denies throat swelling and Denies wheezing Patient History Medical History AAA (abdominal aortic aneurysm) without rupture (Chronic) Anxiety (Chronic) CAD (coronary artery disease) (Chronic 10/2013) Chicken pox (Resolved) Chronic headaches (Chronic) Cirrhosis (Chronic) Colon polyps (Chronic) CTS (carpal tunnel syndrome) (Chronic) CVA (cerebral vascular accident) (Resolved) Diverticular disease (Chronic) Elevated PSA (Resolved) Erectile dysfunction following radical prostatectomy (Chronic) Foot pain (Chronic) Fractures (Resolved) GERD (gastroesophageal reflux disease) (Chronic) Hayfever (Chronic) Hyperlipidemia (Chronic) Hypertension (Chronic) Insomnia (Chronic) Measles (Resolved) MA (myocardial infarction) (Resolved) Migraines (Chronic) Mumps (Resolved) Myalgia (Chronic) Osteopenia (Chronic) Palpitations (Chronic) Prostate cancer (Chronic) Psoriasis (Chronic) PTSD (post-traumatic stress disorder) (Chronic) Shoulder pain (Chronic) SOB (shortness of breath) (Chronic) Tinnitus (Chronic) Vertigo (Chronic) Surgical History Anesthesia (Resolved) History of angioplasty (Resolved 10/2013) Status post knee surgery (Resolved) Status post radical cystoprostatectomy (Resolved) Family History Brother Age: 77 Heart disease Grandfather Colorectal cancer Grandmother Hypertension Cancer Mother Heart disease Hypertension Sister Age: 78 Breast cancer Father Alcohol abuse Grandmother No problems noted. Grandfather No problems noted. Social History household members: spouse Smoking Status: Former smoker Smoking Status: Former smoker alcohol intake frequency: a few times a week Substance Use Type: marijuana Exam Narrative Exam Narrative: GENERAL: [74] year old patient appears stated age. Well-nourished, well-developed patient, in mild distress. HEAD: Atraumatic. Normocephalic. EYES: Pupils equal round and reactive. Extraocular motions intact. No scleral icterus. No injection or drainage. ENT: Nose without bleeding, purulent drainage. Throat without erythema, tonsillar hypertrophy or exudate. Airway patent. NECK: Trachea midline. Non tender CARDIOVASCULAR: Regular rate and rhythm without murmurs, gallops, or rubs. RESPIRATORY: Clear to auscultation. Breath sounds equal bilaterally. No wheezes, rales, or rhonchi. GASTROINTESTINAL: Abdomen soft, non-tender, nondistended. EXTREMITIES: macerated, complex laceration to tip of left index finger with a tip avulsion in the small amount of nail involvement. This avulsion measures less than 1 x 1 cm and has minimal active bleeding. On the volar surface of the index finger distal to the D IP there are is complex macerated injury with soft tissue exposure but no bony exposure. Decreased sensation distal to laceration. BACK: Nontender without deformity or crepitance. No flank tenderness. NEURO: AOx3. SKIN: No rash or erythema of visible areas Initial Vital Signs Initial Vital Signs: Vital Signs Pulse Rate 61 12/17/19 15:41 Respiratory Rate 18 12/17/19 15:41 Blood Pressure 157/74 H 12/17/19 15:41 Pulse Oximetry 99 12/17/19 15:41 Procedures Laceration Repair Laceration 1: Side (If applicable): left Size (cm): 2 Description: irregular and clean Depth: involves muscle layer Local Anesthetic: bupivacaine 0.25% Amount of anesthesia used (mL): 4 Pre-repair: wound explored and irrigated extensively Skin layer closed with: nylon Size (cm): 4-0 Number of sutures: 5 Technique: simple, interrupted Nerve Block Nerve Block 1: Nerve Blocks: digital Procedure Successful: Yes Patient Tolerated Procedure: Well Complications: none Course Orders Ordered: Discontinued Medications Bupivacaine HCl (Sensorcaine 0.5% (Pf)) 5 ml SUBCUT NOW ONE Stop: 12/17/19 15:46 Last Admin: 12/17/19 18:09 Dose: 5 ml Documented by: KENJI Diphtheria/Tetanus/Acell Pertussis (Adacel) 0.5 ml IM .ONCE ONE Stop: 12/17/19 15:46 Last Admin: 12/17/19 18:07 Dose: Not Given Documented by: KENJI Consultations Consultation #1: discussion with Dr. Partida who will see in office later this week. Vital Signs Vital signs: Vital Signs - 8 hr 12/17/19 15:41 Pulse Rate 61 Respiratory Rate 18 Blood Pressure 157/74 H Pulse Oximetry 99 Discharge Plan Departure Patient Disposition: Home Clinical Impression: Open fracture of distal phalanx of left index finger Qualifiers: Encounter type: initial encounter Fracture alignment: nondisplaced Qualified Code(s): S62.661B - Nondisplaced fracture of distal phalanx of left index finger, initial encounter for open fracture Discharge Date/Time: 12/17/19 19:39 Instructions: How to Care for a Laceration After Repair, DI for Laceration Repair Activity Restrictions/Additional Instructions: *You have been diagnosed with [complex laceration of left index finger with open fracture of distal phalanx] *What to do: *Take medications as directed: Antibiotics to [facility] in [place] *Follow up with [facility], call for an appointment. Let them know you were seen in the Emergency Department and that we ask that you be seen in follow up *Return to ER if you should have any new, worsening or concerning symptoms Prescriptions: New cephalexin [Keflex] 500 mg capsule 500 mg PO QID 7 Days Qty: 28 RF: 0 No Action aspirin 81 MG tablet,delayed release (DR/EC) 81 mg PO QDAY Qty: 30 RF: 0 carvedilol 3.125 mg tablet 3.125 mg PO BID RF: 0 losartan 25 mg tablet See Rx Instructions PO BID RF: 0 clopidogrel 75 mg tablet 75 mg PO DAILY RF: 0 rosuvastatin 20 mg tablet 20 mg PO DAILY RF: 0 escitalopram oxalate [Lexapro] 10 mg tablet 10 mg PO QDAY Qty: 90 RF: 3 lidocaine 5 % adhesive patch,medicated 1 patch TOP DAILY PRN (Reason: pain (scale score 4-6)) Qty: 15 RF: 0 Referrals: Selam Maldonado MD [Primary Care Provider] -
[2019-12-17] MEDS: BUPIVACAINE 0.5% (PF) VIAL 5 ML SUBCUT (18:09)
--- NOTE | 2019-12-17 18:57 | PC.NURSE ---
Patient got to lobby, bleeding through dressing. Brought back to RM 4
--- NOTE | 2019-12-17 19:35 | PC.NURSE ---
pt sat for 20min with first dressing with surg i wayne and tube gauze, bled through, pt back to the room , dr diaz added 2-3 more sutures and placed surg i wayne, I finished it with bulky tube gauze dressing.
[2019-12-17 19:39] VITALS: BP 130/75; PULSE 80; RESP 18; O2SAT 97
== END 2019-12-17 19:39 | disposition home or self-care (01) ==
PROVIDERS: Emergency Provider Emergency Medicine; PCP Internal Medicine
DX: S62.661B Nondisplaced fracture of distal phalanx of left index finger, initial encounter for open fracture (principal); W31.89XA Contact with other specified machinery, initial encounter
CPT/HCPCS: 13131; 64450; 73140; 99284

== ENCOUNTER → 2020-05-07 09:28 | Outpatient (CLI) | payer MEDICARE, SELFPAY ==
[2020-05-07 11:00] LABS: Alanine Aminotransferase 24 IU/L (<50); Albumin 4.6 g/dL (3.5-5.0); Albumin Globulin Ratio 1.5 (1.0-2.8); Alkaline Phosphatase 61 U/L (38-126); Aspartate Aminotransferase 28 IU/L (17-59); Bilirubin Total 1.8 mg/dL (0.2-1.3); Blood Urea Nitrogen 23 mg/dL (9-20); Calcium 9.5 mg/dL (8.4-10.2); Carbon Dioxide 28 mmol/L (22-32); Chloride 105 mmol/L (98-107); Cholesterol 177 mg/dL (140-199); Estimated Glomerular Filt Rate > 60.0 mL/min (>60); Glucose 104 mg/dL (80-110); HDL Cholesterol 42 mg/dL (40-60); HEMOLYSIS < 15 (0-50); LDL Cholesterol Calculated 87 mg/dL (<100); Potassium 4.4 mmol/L (3.4-5.1); Sodium 140 mmol/L (137-145); Total Protein 7.6 g/dL (6.3-8.2); Triglycerides 240 mg/dL (35-150)
[2020-05-07 11:33] LABS: Prostate Specific Antigen < 0.064 ng/mL (0.10-4.00)
== END ==
PROVIDERS: PCP Internal Medicine; Referring Provider Internal Medicine; Visit Provider Internal Medicine
DX: I10 Essential (primary) hypertension (principal); E78.1 Pure hyperglyceridemia; C61 Malignant neoplasm of prostate
CPT/HCPCS: 36415; 80053; 80061; 84153

== ENCOUNTER → 2020-09-19 08:44 | Outpatient (CLI) | payer MEDICARE, SELFPAY ==
[2020-09-19 10:34] LABS: Alanine Aminotransferase 24 IU/L (<50); Albumin 4.7 g/dL (3.5-5.0); Albumin Globulin Ratio 1.8 (1.0-2.8); Alkaline Phosphatase 66 U/L (38-126); Aspartate Aminotransferase 26 IU/L (17-59); BUN Creatinine Ratio 23.2 (6-22); Bilirubin Total 1.7 mg/dL (0.2-1.3); Blood Urea Nitrogen 22 mg/dL (9-20); Carbon Dioxide 29 mmol/L (22-32); Chloride 105 mmol/L (98-107); Cholesterol 187 mg/dL (140-199); Estimated Glomerular Filt Rate > 60.0 mL/min (>60); Globulin 2.6 g/dL (1.7-4.1); Glucose 106 mg/dL (80-110); HDL Cholesterol 52 mg/dL (40-60); HEMOLYSIS < 15 (0-50); LDL Cholesterol Calculated 94 mg/dL (<100); Potassium 4.7 mmol/L (3.4-5.1); Sodium 139 mmol/L (137-145); Total Protein 7.3 g/dL (6.3-8.2); Triglycerides 203 mg/dL (35-150)
== END ==
PROVIDERS: PCP Internal Medicine; Referring Provider Internal Medicine; Visit Provider Internal Medicine
DX: I10 Essential (primary) hypertension (principal); E78.1 Pure hyperglyceridemia
CPT/HCPCS: 36415; 80053; 80061

== ENCOUNTER → 2020-09-24 18:54 | Outpatient (ROUT) | payer MEDICARE, SELFPAY ==
[2020-09-24 19:46] LABS: TSH w/ Reflex to FT4 2.18 uIU/mL (0.47-4.68)
[2020-09-24 20:04] LABS: Vitamin B12 701 pg/mL (239-931)
== END ==
PROVIDERS: PCP Internal Medicine; Visit Provider Internal Medicine
DX: R41.3 Other amnesia (principal)
CPT/HCPCS: 82607; 84443

== ENCOUNTER → 2020-09-26 07:36 | Outpatient (CLI) | payer MEDICARE, SELFPAY ==
--- NOTE | 2020-09-26 | DI.MRI.S_ITS ---
PROCEDURE: MR HEAD/BRAIN WO CON INDICATIONS: Other amnesia TECHNIQUE: Non-contrast axial T1 spin echo, axial T2 fast spin echo, sagittal and axial FLAIR, coronal T2 fast spin echo, axial gradient echo, axial diffusion and ADC through the brain. COMPARISON: None. FINDINGS: Image quality: Excellent. CSF spaces: Ventricles appear symmetric in size and shape. Basal cisterns are patent. No extra-axial fluid collections. Brain: No intracranial bleeds or mass effects. There is cerebral volume loss for age. There are periventricular and deep white matter chronic small vessel ischemic changes. Brainstem appears normal. Diffusion-weighted images show no acute ischemic insults. No chronic ischemic insults. Normal intravascular flow voids are present. Skull and face: Calvarial bone marrow is normal in signal. Orbits are normal. Sinuses: Sinuses demonstrate a small mucous retention cyst versus polyp in the right maxillary sinus. Otherwise, there is scattered minimal pansinus mucosal thickening. IMPRESSION: 1. No acute intracranial process. 2. Moderate atrophy and chronic microvascular ischemic changes. Dictated by: Rosanna Howell M.D. on 09/26/2020 at 9:20 Approved by: Rosanna Howell M.D. on 09/26/2020 at 9:21
== END ==
PROVIDERS: PCP Internal Medicine; Referring Provider Internal Medicine; Visit Provider Internal Medicine
DX: R41.3 Other amnesia (principal)
CPT/HCPCS: 70551

== ENCOUNTER → 2021-03-03 08:45 | Outpatient (CLI) | payer MEDICARE, SELFPAY ==
[2021-03-03 10:40] LABS: Glucose 108 mg/dL (80-110); Uric Acid 6.3 mg/dL (3.5-8.5)
[2021-03-03 10:42] LABS: Hemoglobin A1C% w Est Avg Glu 5.5 % (4.0-6.0)
[2021-03-03 10:46] LABS: High Sensitivity CRP - Cardiac 1.6 mg/L (1.0-3.0)
[2021-03-03 10:55] LABS: Erythrocyte Sedimentation Rate 10 MM/HR (0-15)
[2021-03-03 10:56] LABS: Vitamin D 25 Hydroxy (D3) 66.5 ng/mL (30.0-100.0)
[2021-03-03 11:10] LABS: Free T3, Triiodothyronine Free 3.49 pg/mL (2.77-5.27); Free T4, Direct Thyroxine 0.97 ng/dL (0.78-2.19)
[2021-03-03 11:13] LABS: Ferritin 113 ng/mL (18-464)
[2021-03-03 11:23] LABS: Thyroid Stimulating Hormone 1.12 uIU/mL (0.47-4.68)
[2021-03-04 15:08] LABS: Insulin Level Total 9.6 uIU/mL (2.6-24.9)
[2021-03-05 18:18] LABS: H.pylori IgG 1.05 (0.00-0.79)
[2021-03-06 14:01] LABS: Triiodothyronine T3 Reverse 18.7 ng/dL (9.2-24.1)
[2021-03-10 09:36] LABS: Percent Free Testosterone 3.72 % (1.50-4.20); Testosterone Free 7.28 ng/dL (5.00-21.00); Testosterone Total 195.7 ng/dL (264.0-916.0)
== END ==
PROVIDERS: PCP Internal Medicine; Referring Provider Naturopath; Visit Provider Naturopath
DX: I87.309 Chronic venous hypertension (idiopathic) without complications of unspecified lower extremity (principal); E78.1 Pure hyperglyceridemia; I48.91 Unspecified atrial fibrillation; I25.10 Atherosclerotic heart disease of native coronary artery without angina pectoris
CPT/HCPCS: 36415; 82306; 82533; 82627; 82728; 82947; 83036; 83525; 84402; 84403; 84439; 84443; 84481; 84482; 84550; 85651; 86140; 86628; 86677

== ENCOUNTER → 2021-06-01 10:05 | Outpatient (CLI) | payer MEDICARE, SELFPAY ==
[2021-06-01 11:24] LABS: COVID19 -Nasal RAPID Negative (Negative)
== END ==
PROVIDERS: PCP Internal Medicine; Visit Provider Physician Assistant
DX: Z01.812 Encounter for preprocedural laboratory examination (principal); Z20.822 Contact with and (suspected) exposure to COVID-19
CPT/HCPCS: 87635

== ENCOUNTER 2021-06-02 08:01 | Day surgery (SDC) | payer MEDICARE, SELFPAY ==
[2021-06-02 08:02] VITALS: BP 137/73; PULSE 51; RESP 18; TEMP 36.3; O2SAT 100; BMI 26.1
--- NOTE | 2021-06-02 08:39 | PM.PREOP ---
Pre-operative Note Interval Note History & Physical reviewed/Exam performed by Physician: Yes Changes to H&P: No
--- NOTE | 2021-06-02 08:39 | PM.OP.1 ---
Operative Date/Time/Diagnoses Pre-op diagnosis: Nuclear cataract right eye Procedure & Clinicians Procedure: Cataract Surgery Same procedure as scheduled: Yes Surgeon: David Hare Anesthesia Type: MAC +/- and Sedation Operative Notes Procedure in detail: Patient brought to the operating suite. Tetracaine drops placed in the right eye. Patient was prepped and draped in sterile manner. Wire lid speculum was placed in the eye. Betadine drops were placed on the eye. This was irrigated. Lidocaine jelly was placed on the eye. A paracentesis port was created with a side-port blade. 0.1 mL 1% preservative free lidocaine was injected into the anterior chamber. The anterior chamber was deepened with viscoelastic. 2.6 mm keratome was used to create a temporal clear corneal incision. Cystotome and Utrata forceps were used to create continuous tear capsulorrhexis. Balanced salt solution was used to hydro dissect the nucleus. The phacoemulsification handpiece was inserted and the nucleus was removed using the stop and chop technique. The irrigation aspiration handpiece was inserted and the remaining cortex was removed. Anterior chamber was deepened with viscoelastic. An Duvall DIB00 intraocular lens with a power of 19.0 was injected into the capsular bag. Irrigation aspiration handpiece was inserted and the remaining viscoelastic was removed. Incision was hydrated with balanced salt solution and found to be leak free with pressure with Weck-Maeve sponges. 0.1 mL Vigamox injected anterior chamber. 0.3 mL Kenalog 10 mg was injected subconjunctivally. Lid speculum was removed. The patient left the operating room in excellent condition. Complications: none Post-operative Condition: stable Disposition: same day surgery
[2021-06-02] MEDS: HYALURONATE SODIUM 30 MG-10 MG/ML SYRINGES 1 BOX INTRAOCULA (08:56)
[2021-06-02] MEDS: PHENYLEPHRINE/LIDOCAINE VIAL (OR) 0.2 ML EYE-OP (08:57)
[2021-06-02] MEDS: TETRACAINE 0.5% OPHTH DROPS 4 ML 2 DROPS EYE-OP (08:57)
[2021-06-02] MEDS: TRIAMCINOLONE 50 MG/5 ML VIAL INJ (08:57)
[2021-06-02] MEDS: MOXIFLOXACIN INJ 4 MG/0.8 ML VIAL 0.5 MG EYE-OP (08:57)
[2021-06-02] MEDS: BALANCED SALT IRRIG SOLN NO.2 500 ML, EPINEPHrine 1 MG IRR (08:57)
[2021-06-02] MEDS: LIDOCAINE 2% (GLYDO) 6 ML GEL TOP (08:58)
[2021-06-02 09:10] VITALS: BP 131/68; PULSE 48; RESP 16; TEMP 36.4; O2SAT 100
== END 2021-06-02 09:30 | disposition home or self-care (01) ==
PROVIDERS: PCP Internal Medicine; Referring Provider Ophthalmology; Visit Provider Ophthalmology
PROC: (CPT 66984; principal; 2021-06-02 08:45)
DX: H25.11 Age-related nuclear cataract, right eye (principal); E78.00 Pure hypercholesterolemia, unspecified; I10 Essential (primary) hypertension
CPT/HCPCS: 66984; J0171; J2250; J3010; J3301

== ENCOUNTER → 2021-06-15 09:58 | Outpatient (CLI) | payer MEDICARE, SELFPAY ==
[2021-06-15 12:59] LABS: COVID19 -Nasal RAPID Negative (Negative)
== END ==
PROVIDERS: PCP Internal Medicine; Visit Provider Physician Assistant
DX: Z20.822 Contact with and (suspected) exposure to COVID-19 (principal)
CPT/HCPCS: 87635; C9803

== ENCOUNTER 2021-06-16 08:33 | Day surgery (SDC) | payer MEDICARE, SELFPAY ==
[2021-06-16 09:10] VITALS: BP 131/65; PULSE 52; RESP 16; TEMP 36.4; O2SAT 99; BMI 25.7
[2021-06-16] MEDS: PROPARACAINE 0.5% OPHTH SOL 2 DROPS EYE-OP (09:17)
[2021-06-16] MEDS: CATARACT EYE COMPOUND (10 DROPS/SYRINGE) 3 DROPS EYE-OP ×3 (09:17→09:27)
--- NOTE | 2021-06-16 10:11 | PM.PREOP ---
Pre-operative Note Interval Note History & Physical reviewed/Exam performed by Physician: Yes Changes to H&P: No
--- NOTE | 2021-06-16 10:11 | PM.OP.1 ---
Operative Date/Time/Diagnoses Pre-op diagnosis: Nuclear Cataract Left eye Post-op diagnosis: same Procedure & Clinicians Same procedure as scheduled: Yes Surgeon: David Hare Anesthesia Type: MAC +/- and Sedation Operative Notes Procedure in detail: Patient brought to the operating suite. Tetracaine drops placed in the left eye. Patient was prepped and draped in sterile manner. Wire lid speculum was placed in the eye. Betadine drops were placed on the eye. This was irrigated. Lidocaine jelly was placed on the eye. A paracentesis port was created with a side-port blade. 0.1 mL 1% preservative free lidocaine was injected into the anterior chamber. The anterior chamber was deepened with viscoelastic. 2.6 mm keratome was used to create a temporal clear corneal incision. Cystotome and Utrata forceps were used to create continuous tear capsulorrhexis. Balanced salt solution was used to hydro dissect the nucleus. The phacoemulsification handpiece was inserted and the nucleus was removed using the stop and chop technique. The irrigation aspiration handpiece was inserted and the remaining cortex was removed. Anterior chamber was deepened with viscoelastic. An Duvall DIB00 intraocular lens with a power of 19.0 was injected into the capsular bag. Irrigation aspiration handpiece was inserted and the remaining viscoelastic was removed. Incision was hydrated with balanced salt solution and found to be leak free with pressure with Weck-Maeve sponges. 0.1 mL Vigamox injected anterior chamber. 0.3 mL Kenalog 10 mg was injected subconjunctivally. Lid speculum was removed. The patient left the operating room in excellent condition. Complications: none Post-operative Condition: stable Disposition: same day surgery
[2021-06-16] MEDS: MOXIFLOXACIN INJ 4 MG/0.8 ML VIAL 0.5 MG EYE-OP (10:27)
[2021-06-16] MEDS: HYALURONATE SODIUM 30 MG-10 MG/ML SYRINGES 1 BOX INTRAOCULA (10:27)
[2021-06-16] MEDS: TRIAMCINOLONE 50 MG/5 ML VIAL INJ (10:28)
[2021-06-16] MEDS: PHENYLEPHRINE/LIDOCAINE VIAL (OR) 0.2 ML EYE-OP (10:28)
[2021-06-16] MEDS: BALANCED SALT IRRIG SOLN NO.2 500 ML, EPINEPHrine 1 MG IRR (10:29)
[2021-06-16] MEDS: TETRACAINE 0.5% OPHTH DROPS 4 ML 2 DROPS EYE-OP (10:29)
[2021-06-16] MEDS: LIDOCAINE 2% (GLYDO) 6 ML GEL TOP (10:29)
[2021-06-16 10:40] VITALS: BP 116/70; PULSE 48; RESP 16; TEMP 36.3; O2SAT 98
[2021-06-16 10:54] VITALS: BP 119/70; PULSE 50; RESP 16; O2SAT 98
== END 2021-06-16 11:07 | disposition home or self-care (01) ==
PROVIDERS: PCP Internal Medicine; Referring Provider Ophthalmology; Visit Provider Ophthalmology
PROC: (CPT 66984; principal; 2021-06-16 10:15)
DX: H25.12 Age-related nuclear cataract, left eye (principal); E78.00 Pure hypercholesterolemia, unspecified; I10 Essential (primary) hypertension; Z86.73 Personal history of transient ischemic attack (TIA), and cerebral infarction without residual deficits
CPT/HCPCS: 66984; J0171; J2250; J2704; J3010; J3301

== ENCOUNTER → 2022-03-12 11:14 | Outpatient (CLI) | payer MEDICARE, SELFPAY ==
--- NOTE | 2022-03-12 | DI.MRI.S_ITS ---
PROCEDURE: MR LUMBAR SPINE WO CON INDICATIONS: Lumbago with sciatica, left side TECHNIQUE: Noncontrast sagittal T1 spin echo and T2 fast echo, sagittal STIR, and T2 fast spin echo through the lumbar spine. In cases with scoliosis, additional coronal T2 fast spin echo may be performed. COMPARISON: [facility], MR, MR LUMBAR SPINE WO CON, 07/04/2019, 7:01. FINDINGS: Image quality: Excellent. Alignment and Curvature: There is normal bony alignment. Bone Marrow: Marrow is of normal overall signal. No acute vertebral body compression fractures. Spinal Cord: Conus medullaris terminates at the L1 level. Visualized cord demonstrates normal signal and size. Paraspinous Soft Tissues: No paravertebral masses. There is a partially visualized infrarenal abdominal aortic aneurysm. T12-L1: Diffuse disc bulge with no significant foraminal or central canal stenosis. L1-L2: Diffuse disc bulge with no significant foraminal or central canal stenosis. L2-L3: No significant disc bulge. The foramina and central canal are patent. L3-L4: Diffuse disc bulge causes mild bilateral foraminal stenosis. The central canal has mild narrowing. L4-L5: Diffuse disc bulge with a central annular tear causes mild bilateral foraminal stenosis. No central canal stenosis. L5-S1: No significant disc bulge. The foramina and central canal are patent. Prominent epidural lipomatosis in the sacral canal unchanged compared to prior. IMPRESSION: 1. Multilevel lumbar spondylosis as detailed above. 2. Epidural lipomatosis causing severe central canal narrowing in the sacral canal, unchanged. 3. No significant interval change. 4. Partially visualized infrarenal abdominal aortic aneurysm. Dictated by: Vicente Green M.D. on 03/12/2022 at 13:57 Approved by: Vicente Green M.D. on 03/12/2022 at 14:06
== END ==
PROVIDERS: PCP Internal Medicine; Referring Provider Physician Assistant; Visit Provider Physician Assistant
DX: M47.816 Spondylosis without myelopathy or radiculopathy, lumbar region (principal); I71.4 Abdominal aortic aneurysm, without rupture; M54.42 Lumbago with sciatica, left side
CPT/HCPCS: 72148

== ENCOUNTER → 2022-07-02 10:16 | Outpatient (CLI) | payer MEDICARE, SELFPAY ==
--- NOTE | 2022-07-02 10:17 | DI.RAD.S_ITS ---
PROCEDURE: XR LUMBAR SPINE MIN 4V INDICATIONS: BACK PAIN TECHNIQUE: 5 views of the lumbar spine were acquired, including bilateral oblique views. COMPARISON: [facility], CT, CT ABDOMEN PELVIS W CON, 01/04/2019, 10:15. [facility], MR, MR LUMBAR SPINE WO CON, 03/12/2022, 11:29. [facility], CR, XR LUMBAR SPINE 2-3V, 06/25/2019, 12:30. FINDINGS: Bones: 5 nonrib-bearing vertebrae are present. Mild right convexity curvature centered at L1-L2. Mild multilevel degenerative changes with disc height loss, endplate spurring, and facet arthropathy. Possible mild superior endplate compression deformity L1 not visualized previously.. No suspicious bony lesions. Soft tissues: Overlying bowel gas pattern is normal. No suspicious soft tissue calcifications. Oblique images: No pars defects. IMPRESSION: Multilevel degenerative changes of the lumbar spine. Possible superior endplate compression deformity of L1. If symptoms persist, follow-up radiographs and/or CT or MRI may be helpful for further evaluation. Dictated by: Fam Patrick M.D. on 07/02/2022 at 10:34 Approved by: Fam Patrick M.D. on 07/02/2022 at 10:39
== END ==
PROVIDERS: PCP Internal Medicine; Referring Provider Physical Medicine & Rehabilitation; Visit Provider Physical Medicine & Rehabilitation
DX: M47.816 Spondylosis without myelopathy or radiculopathy, lumbar region (principal); M54.9 Dorsalgia, unspecified
CPT/HCPCS: 72110

== ENCOUNTER → 2022-07-07 13:24 | Outpatient (CLI) | payer MEDICARE, SELFPAY ==
--- NOTE | 2022-07-07 13:27 | DI.RAD.S_ITS ---
PROCEDURE: XR KNEE LT 3V INDICATIONS: knee djd TECHNIQUE: 3 views of the knee were acquired. COMPARISON: None. FINDINGS: Bones: No fractures or dislocations. No suspicious bony lesions. Moderate tricompartmental periarticular osteophyte formation. Soft tissues: No joint effusion. Calcification within the medial and lateral compartments. Calcification at the superior aspect of the patella. IMPRESSION: 1. Osteoarthritis. 2. Chondrocalcinosis. Differential diagnosis includes but is not limited to hemochromatosis, hyperparathyroidism and CPPD. 3. Calcifications at the superior aspect of the patella, most suggestive of sequelae of quadriceps tendinopathy. Further assessment with knee MRI is recommended. Dictated by: Dann Hyman M.D. on 07/07/2022 at 14:02 Approved by: Dann Hyman M.D. on 07/07/2022 at 14:03
--- NOTE | 2022-07-07 13:27 | DI.RAD.S_ITS ---
PROCEDURE: XR KNEE RT 3V INDICATIONS: knee djd TECHNIQUE: 3 views of the knee were acquired. COMPARISON: None. FINDINGS: Bones: No fractures or dislocations. No suspicious bony lesions. Moderate tricompartmental periarticular osteophyte formation. Soft tissues: No joint effusion. Medial and lateral compartment chondrocalcinosis. Multiple calcifications at the superior aspect of the patella. IMPRESSION: 1. Osteoarthritis. 2. Chondrocalcinosis. Differential diagnosis includes but is not limited to hemochromatosis, hyperparathyroidism and CPPD. 3. Calcifications at the superior aspect of the patella which could indicate sequelae of quadriceps tendinopathy and/or intra-articular loose bodies. This could be further assessed with knee MRI, if clinically indicated. Dictated by: Dann Hyman M.D. on 07/07/2022 at 14:01 Approved by: Dann Hyman M.D. on 07/07/2022 at 14:02
== END ==
PROVIDERS: PCP Internal Medicine; Referring Provider Physical Medicine & Rehabilitation; Visit Provider Physical Medicine & Rehabilitation
DX: M17.0 Bilateral primary osteoarthritis of knee (principal); M11.262 Other chondrocalcinosis, left knee; M11.261 Other chondrocalcinosis, right knee
CPT/HCPCS: 73562

== ENCOUNTER → 2022-12-24 17:01 | Outpatient (CLI) | payer MEDICARE, SELFPAY ==
--- NOTE | 2022-12-24 17:03 | DI.MRI.S_ITS ---
PROCEDURE: MR KNEE RT WO CON INDICATIONS: RUPTURE OF RT QUADRICEPT MUSCLE TECHNIQUE: Noncontrast sagittal PD fast spin echo and T2 fast spin echo with fat saturation, sagittal 3-D FLASH with fat saturation; coronal T1 spin echo and PD fast spin echo with fat saturation, and axial PD fast spin echo with fat saturation through the knee. COMPARISON: [facility], CR, XR KNEE ARTHRITIC SERIES BI, 12/21/2022, 14:28. FINDINGS: Image quality: Excellent. Menisci: Medial extrusion of the medial meniscus is present. There is linear horizontal and oblique high T2 signal intensity as well as amorphous high signal intensity within the inner, middle, and peripheral thirds of the anterior horn, body, and posterior horn medial meniscus, demonstrating superior and inferior articular surface extension, indicating complex tearing. Lateral meniscus demonstrates a discoid configuration as well as linear horizontal and amorphous high signal intensity within the inner, middle, and peripheral thirds of the lateral meniscal body, demonstrating inferior articular surface extension, indicating complex tearing. Cruciate ligaments: The anterior cruciate ligament is intact. There is a small amount of fluid signal intensity within the mid/superior aspect of the posterior cruciate ligament. Medial structures: The medial collateral ligament appears intact. Visualized portions of the pes anserinus tendons appear normal. No abnormal bursal fluid. Lateral structures: The lateral collateral ligament, long and short heads of the biceps femoris tendon appear intact. The popliteus tendon appears normal. Iliotibial band appears normal. Anterior structures: There is moderate grade tearing of the quadriceps tendon at the patellar insertion site. There are regions of calcification left ossification within the distal quadriceps. Patellar tendon is intact. Patellar alignment is normal. No femoral trochlear dysplasia or ventral trochlear prominence. No edema in the infrapatellar fat pad. Bones and cartilage: No bone marrow contusions or fractures. There is mild subchondral degenerative marrow edema within the mid and posterior weight-bearing aspects of the medial femoral condyle and medial tibial plateau. There is mild tricompartmental periarticular osteophyte formation. Severe articular cartilage loss diffusely overlies the weight-bearing aspects of the medial femoral condyle and medial tibial plateau. Moderate articular cartilage loss overlies the lateral patellar facet . Articular cartilage fibrillation overlies the central and medial femoral trochlea . Joint space: There is a small knee joint effusion and a small Dubon's cyst. Normal appearing synovial plicae are incidentally noted. IMPRESSION: 1. Medial and lateral meniscal tearing. Discoid lateral meniscus. 2. Partial-thickness posterior cruciate ligament tear. 3. Tricompartmental osteoarthritis with associated articular cartilage loss. 4. Partial-thickness tearing and ossification of the quadriceps tendon. 5. Knee joint effusion and Dubon's cyst. Dictated by: Dann Hyman M.D. on 12/27/2022 at 8:51 Approved by: Dann Hyman M.D. on 12/27/2022 at 8:54
== END ==
PROVIDERS: PCP Internal Medicine; Referring Provider Orthopaedic Surgery; Visit Provider Orthopaedic Surgery
DX: S76.111A Strain of right quadriceps muscle, fascia and tendon, initial encounter (principal); S83.241A Other tear of medial meniscus, current injury, right knee, initial encounter; S83.281A Other tear of lateral meniscus, current injury, right knee, initial encounter; S83.521A Sprain of posterior cruciate ligament of right knee, initial encounter; M17.11 Unilateral primary osteoarthritis, right knee; M25.461 Effusion, right knee; M71.21 Synovial cyst of popliteal space [Baker], right knee; X58.XXXA Exposure to other specified factors, initial encounter
CPT/HCPCS: 73721

== ENCOUNTER → 2023-08-22 11:17 | Outpatient (CLI) | payer MEDICARE, SELFPAY ==
--- NOTE | 2023-08-22 11:20 | DI.US.S_ITS ---
PROCEDURE: US RETROPERITONEAL COMP INDICATIONS: Infrarenal abdominal aortic aneurysm TECHNIQUE: Real-time scanning was performed of the kidneys and bladder, with image documentation. COMPARISON: None. FINDINGS: Proximal abdominal aorta measures 2.1 by 2.0 cm, previously 1.8 cm. Mid abdominal aorta measures 2.2 x 2.1 cm, previously 1.4 cm Distal abdominal aorta measures 4.7 x 5.3 cm, previously 3.9 x 5.6 cm. Right and left common iliac arteries measure 1.5 and 1.3 cm respectively. Para no free fluid. IMPRESSION: Slight increase in diameter of distal infrarenal abdominal aortic aneurysm Approved by: Elvin Garcia M.D. on 08/22/2023 at 16:08
== END ==
PROVIDERS: PCP Internal Medicine; Referring Provider Physician Assistant; Visit Provider Physician Assistant
DX: I71.43 Infrarenal abdominal aortic aneurysm, without rupture (principal)
CPT/HCPCS: 76770

== ENCOUNTER → 2024-12-25 12:15 | Outpatient (CLI) | payer MEDICARE, SELFPAY ==
--- NOTE | 2024-12-25 12:18 | DI.US.S_ITS ---
PROCEDURE: US RETRO PERITONEAL LIMITED INDICATIONS: INFRARENAL ABD AORTIC ANEURYSM TECHNIQUE: Real time scanning was performed of the aorta and iliac arteries, with image documentation. COMPARISON: None. FINDINGS: Aorta: Proximal aortic diameter measures 2.2 cm. Mid-aorta measures 2.1 cm. Distal aortic diameter is 5.2 cm. This was previously measured at 4.7 cm in diameter. Iliac arteries: Right common iliac artery measures 1.5 cm. Left common iliac artery measures 1.9 cm, previously 1.3 cm in diameter. IMPRESSION: 1. Interval increase in size of patient's known distal infrarenal abdominal aortic aneurysm now measures 5.2 cm in diameter. 2. 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 Dictated by: Jasmeet Evans M.D. on 12/25/2024 at 13:28 Approved by: Jasmeet Evans M.D. on 12/25/2024 at 13:31
== END ==
PROVIDERS: PCP Internal Medicine; Referring Provider Nurse Practitioner; Visit Provider Nurse Practitioner
DX: I71.43 Infrarenal abdominal aortic aneurysm, without rupture (principal); I72.3 Aneurysm of iliac artery
CPT/HCPCS: 76775